=== PATIENT | female | born 1970 | race Caucasian/White ===

== ENCOUNTER 2017-07-21 19:45 | Emergency (ER) | payer BC ==
[2017-07-21] MEDS ORDERED: ASPIRIN 81 MG CHEWABLE TABLET PO ONE (20:13)
--- NOTE | 2017-07-21 20:19 | Emergency Department Record ---
History of Present Illness - General Chief Complaint: Chest Pain Stated Complaint: TIGHTNESS IN CHEST Time Seen by Provider: 07/21/17 20:05 Source: Patient Mode of Arrival: Ambulatory Limitations: No limitations - History of Present Illness Initial Comments: pt had a panic attack 2 days ago that was caused by an argument. she had palpitations, bilateral arm numbness and chest discomfort. she has contd to have chest discomfort for 2 days. she has no known cardiac risk factors Onset/Timin -: Days(s) Pain Location: Substernal, Epigastric Pain Radiation: None Severity scale (1-10): 4 Quality: Tightness Consistency: Constant Improves With: Nothing Worsens With: Exertion, Inspiration, Palpation Context: Other Anginal Symptoms: Dyspnea Treatments Prior to Arrival: None - Related Data Home Medications Medication Instructions Recorded Confirmed Last Taken Albuterol Sulfate [Ventolin Hfa] 1 - 2 puff INH Q6H PRN 07/21/17 07/21/17 Unknown Alprazolam [Alprazolam] 0.25 mg PO DAILY PRN 07/21/17 07/21/17 Unknown Aripiprazole [Aripiprazole] 10 mg PO DAILY 07/21/17 07/21/17 Unknown Escitalopram Oxalate [Lexapro] 20 mg PO DAILY 07/21/17 07/21/17 Unknown Allergies Allergy/AdvReac Type Severity Reaction Status Date / Time amoxicillin AdvReac SHORTNESS Verified 07/21/17 19:50 OF BREATH meperidine [From Demerol] AdvReac VOMITING Verified 07/21/17 19:50 Travel Screening - Travel/Exposure Within Last 30 Days Have you traveled within the last 30 days?: No - Travel Symptoms Symptom Screening: None Review of Systems Reviewed: No additional complaints except as noted below Constitutional: Reports: As per HPI. Denies: Chills, Fever, Malaise, Night sweats, Weakness, Weight change Eyes: Reports: As per HPI. Denies: Eye discharge, Eye pain, Photophobia, Vision change ENT: Reports: As per HPI. Denies: Congestion, Dental pain, Ear pain, Epistaxis , Hearing loss, Throat pain Respiratory: Reports: As per HPI. Denies: Cough, Dyspnea, Hemoptysis, Stridor, Wheezes Cardiovascular: Reports: As per HPI, Chest pain. Denies: Arrhythmia, Dyspnea on exertion, Edema, Murmurs, Orthopnea, Palpitations, Paroxysmal nocturnal dyspnea, Rheumatic Fever, Syncope Endocrine: Reports: As per HPI. Denies: Fatigue, Heat or cold intolerance, Polydipsia, Polyuria Gastrointestinal: Reports: As per HPI. Denies: Abdominal pain, Constipation, Diarrhea, Hematemesis, Hematochezia, Melena, Nausea, Vomiting Genitourinary: Reports: As per HPI. Denies: Abnormal menses, Discharge, Dyspareunia, Dysuria, Frequency, Hematuria, Incontinence, Retention, Urgency Musculoskeletal: Reports: As per HPI. Denies: Arthralgia, Back pain, Gout, Joint swelling, Myalgia, Neck pain Skin: Reports: As per HPI. Denies: Bruising, Change in color, Change in hair/ nails, Lesions, Pruritus, Rash Neurological: Reports: As per HPI. Denies: Abnormal gait, Confusion, Headache, Numbness, Paresthesias, Seizure, Tingling, Tremors, Vertigo, Weakness Psychiatric: Reports: As per HPI, Anxiety. Denies: Auditory hallucinations, Depression, Homicidal thoughts, Suicidal thoughts, Visual hallucinations Hematological/Lymphatic: Reports: As per HPI. Denies: Anemia, Blood Clots, Easy bleeding, Easy bruising, Swollen glands Past Medical History - SOCIAL HISTORY Smoking Status: Never smoker Alcohol Use: Rare Drug Use: None - RESPIRATORY Hx Respiratory Disorders: Yes Hx Asthma: Yes - CARDIOVASCULAR Hx Cardio Disorders: No - NEURO Hx Neuro Disorders: No - GI Hx GI Disorders: No - Hx Genitourinary Disorders: No - ENDOCRINE Hx Endocrine Disorders: No - MUSCULOSKELETAL Hx Musculoskeletal Disorders: No - PSYCH Hx Psych Problems: Yes Hx Anxiety: Yes Hx Depression: Yes - HEMATOLOGY/ONCOLOGY Hx Hematology/Oncology Disorders: No Family Medical History Any Significant Family History?: Yes Hx Cancer: Mother Hx Heart Disease: Grandparents *Heart Comment: [place], CHF Physical Exam - General General Appearance: Alert, Oriented x3, Cooperative, Mild distress - Head Head exam: Normal inspection - Eye Eye exam: Normal appearance, PERRL, EOMI Pupils: Normal accommodation - ENT ENT exam: Normal exam, Mucous membranes moist, Normal external ear exam, Normal orophraynx Ear exam: Normal external inspection. negative: External canal tenderness Nasal Exam: Normal inspection. negative: Discharge, Sinus tenderness Mouth exam: Normal external inspection, Tongue normal Teeth exam: Normal inspection. negative: Dental caries Throat exam: Normal inspection. negative: Tonsillar erythema, Tonsillar exudate - Neck Neck exam: Normal inspection, Full ROM. negative: Tenderness - Respiratory Respiratory exam: Chest wall tenderness. negative: Respiratory distress - Cardiovascular Cardiovascular Exam: Regular rate, Normal rhythm, Normal heart sounds - GI/Abdominal GI/Abdominal exam: Soft, Normal bowel sounds. negative: Tenderness - Rectal Rectal exam: Deferred - exam: Deferred - Extremities Extremities exam: Normal inspection, Full ROM, Normal capillary refill. negative: Tenderness - Back Back exam: Reports: Normal inspection, Full ROM. Denies: Muscle spasm, Rash noted, Tenderness - Neurological Neurological exam: Alert, Normal gait, Oriented X3, Reflexes normal - Psychiatric Psychiatric exam: Normal affect, Normal mood - Skin Skin exam: Dry, Intact, Normal color, Warm Course Vital Signs 07/21/17 07/21/17 19:49 19:53 Temperature 97.9 F Pulse Rate 81 Pulse Rate [ 87 Pulse Ox Probe] Respiratory 16 18 Rate Blood Pressure 149/89 Blood Pressure 151/87 [Left Arm] Pulse Ox 97 96 - Reevaluation(s) Reevaluation #1: 07/21/17 22:10 pt is not having any cp. since she has had it for 2 days and labs and ekg appear fine it is unlikely to be cardiac Medical Decision Making - Lab Data Result diagrams: 07/21/17 19:55 07/21/17 19:55 Disposition Disposition: Discharge Clinical Impression: Anxiety, Atypical chest pain Disposition: Home, Self-Care Condition: (1) Good Instructions: Chest Pain (ED), Anxiety (ED) Additional Instructions: follow up with family doctor. return sooner if worse. Forms: Patient Portal Access Quality - Quality Measures Quality Measures: N/A - Blood Pressure Screening Does Patient Have Any of the Following: No Blood Pressure Classification: Pre-Hypertensive BP Reading Systolic Measurement: 149 Diastolic Measurement: 89 Screening for High Blood Pressure: < Pre-Hypertensive BP, F/U Documented > [ [id number]] Pre-Hypertensive Follow-up Interventions: Follow-up with rescreen every year.
[2017-07-21 20:28] LABS: BASO % 0.2 % (0-6); EOS % 5.1 % (0-6); GRAN % 60.3 % (47-80); HEMATOCRIT 41.9 % (35.0-47.0); HEMOGLOBIN 13.8 gm/dl (11.6-16.0); LYMPH % 29.4 % (16-45); MEAN CORPUSCULAR HGB CONC 32.9 g/dl (32-36); MEAN PLATELET VOLUME 10.2 fl (7.4-10.4); PLATELET COUNT 337 K/uL (130-400); RED BLOOD COUNT 4.76 M/uL (3.80-5.40); RED CELL DISTRIBUTION WIDTH 12.7 % (11.5-14.5)
[2017-07-21 20:42] LABS: BLOOD UREA NITROGEN 9 mg/dL (6-20); CREATININE 0.7 mg/dL (0.5-0.9); EST GLOMERULAR FILTRATION RATE > 60 mL/min
[2017-07-21 20:44] LABS: GLUCOSE,RANDOM 164 mg/dL (74-109)
[2017-07-21 20:47] LABS: CREATINE PHOSPHOKINASE 88 U/L (26-192)
[2017-07-21 20:50] LABS: CKMB 1.7 ng/mL (<3.77)
--- NOTE | 2017-07-23 19:10 | RADIOLOGY REPORT ---
EXAM: CHEST 2 VIEWS HISTORY: PAIN. TECHNIQUE: Two-view chest. COMPARISON: None. ENCOUNTER: Initial. FINDINGS: The heart size is normal. Lungs are clear. No pneumothorax. IMPRESSION: NEGATIVE CHEST. JOB NUMBER: [id number] MTDD
== END 2017-07-21 22:24 | disposition home or self-care (01) ==
LOC: ER 19:45
DX: R07.89 Other chest pain (principal); F41.0 Panic disorder [episodic paroxysmal anxiety]; R20.0 Anesthesia of skin; R06.00 Dyspnea, unspecified
CPT/HCPCS: 71046; 80048; 82550; 82553; 84443; 84484; 85025; 85379; 93005; 93010; 99284